=== PATIENT | male | born 1945 | race Caucasian/White ===

== ENCOUNTER 2024-08-30 08:06 | Emergency (ER) | payer MEDICARE, BC ==
[2024-08-30 08:12] VITALS: RESP 17; TEMP 97.6
--- NOTE | 2024-08-30 09:06 | ED ---
General Adult HPI - General Chief complaint: Abdominal Pain Stated complaint: GI issues Time Seen by Provider: 08/30/24 08:15 Source: patient Mode of arrival: ambulatory Limitations: no limitations - History of Present Illness Initial comments: Dictation was produced using [employer] dictation software. please excuse any grammatical, word or spelling errors. Chief Complaint: 78-year-old male with history of nonspecific colitis presents with abdominal pain History of Present Illness: Patient 78-year-old male he is visiting from out of town. Patient states he establish medical care in [place]. States that he comes here to visit during the summer. He reports he having history of colitis that was diagnosed by GI specialist based on colonoscopy results. Patient states he has been having a colitis flare. He called his GI doctor who was supposed calling him in some steroids however he never got them. States his pain is worse than usual and in a slightly different location more than usual. States that he had some diarrhea with a little bit of blood in it. Denies any fever chills or night sweats. The ROS documented in this emergency department record has been reviewed and confirmed by me. Those systems with pertinent positive or negative responses have been documented in the HPI. All other systems are other negative and/or no ncontributory. - Related Data Allergies Allergy/AdvReac Type Severity Reaction Status Date / Time Sulfa (Sulfonamide Allergy Nausea & Verified 08/30/24 08:12 Antibiotics) Vomiting Review of Systems ROS Statement: Those systems with pertinent positive or pertinent negative responses have been documented in the HPI. ROS Other: All systems not noted in ROS Statement are negative. Past Medical History Additional Past Medical History / Comment(s): colitis History of Any Multi-Drug Resistant Organisms: None Reported Past Surgical History: Back Surgery, Orthopedic Surgery, Prostate Surgery Smoking Status: Never smoker Past Alcohol Use History: None Reported Past Drug Use History: None Reported General Exam - General Exam Comments Initial Comments: PHYSICAL EXAM: General Impression: Alert and oriented x3, not in acute distress HEENT: Normocephalic atraumatic, extra-ocular movements intact, pupils equal and reactive to light bilaterally, mucous membranes moist. Cardiovascular: Heart regular rate and rhythm Chest: Able to complete full sentences, no retractions, no tachypnea Abdomen: abdomen soft, slight lower abdominal palpatory tenderness non- distended, no organomegaly Musculoskeletal: Pulses present and equal in all extremities, no peripheral edema Motor: no focal deficits noted Neurological: CN II-XII grossly intact, no focal motor or sensory deficits noted Skin: Intact with no visualized rashes Psych: Normal affect and mood Limitations: no limitations Course Vital Signs 08/30/24 08:07 Temperature 97.6 F Pulse Rate 87 Respiratory 17 Rate Blood Pressure 127/72 O2 Sat by Pulse 98 Oximetry Medical Decision Making - Medical Decision Making Was pt. sent in by a medical professional or institution (, PA, SAMPLE DISTRIBUTOR, urgent care, hospital, or prison...) When possible be specific @ -No Did you speak to anyone other than the patient for history (EMS, parent, family, police, friend...)? What history was obtained from this source @ -No Did you review nursing and triage notes (agree or disagree)? Why? @ -I reviewed and agree with nursing and triage notes Were old charts reviewed (outside hosp., previous admission, EMS record, old EKG, old radiological studies, urgent care reports/EKG's, prison records)? Report findings @ -No old charts were reviewed Differential Diagnosis (chest pain, altered mental status, abdominal pain women, abdominal pain men, vaginal bleeding, musculoskeletal, weakness, fever, dyspnea, syncope, headache, dizziness, GI bleed, back pain, seizure, CVA, palpatations, mental health)? @ -Differential Abdominal Pain Men: Appendicitis, cholecystitis, diverticulosis, ischemic bowel, pancreatitis, hepatitis, UTI, gastroenteritis, AAA, incarcerated hernia, bowel obstruction, constipation, inflammatory bowel, hepatitis, peptic ulcer disease, splenic infarction, perforated viscus, testicular torsion, this is not meant to be an all-inclusive list EKG interpreted by me (3pts min.). @ -None done X-rays interpreted by me (1pt min.). @ -None done CT interpreted by me (1pt min.). @ -CT abdomen pelvis shows colitis U/S interpreted by me (1pt. min.). @ -None done What testing was considered but not performed or refused? (CT, X-rays, U/S, labs)? Why? @ -None What meds were considered but not given or refused? Why? @ -None Was smoking cessation discussed for >3mins.? @ -No Were there social determinants of health that impacted care today? How? (Homelessness, low income, unemployed, alcoholism, drug addiction, t ransportation, low edu. Level, literacy, decrease access to med. care, group home, rehab)? @ -No Was there de-escalation of care discussed even if they declined (Discuss DNR or withdrawal of care, Hospice)? DNR status @ -No What co-morbidities impacted this encounter? (DM, HTN, Smoking, COPD, CAD, Cance r, CVA, ARF, Chemo, Hep., AIDS, mental health diagnosis, sleep apnea, morbid obesity)? @ -Colitis Was patient admitted / discharged? Hospital course, mention meds given and route, prescriptions, significant lab abnormalities, going to OR and other pertinent info. @ -78-year-old male with known inflammatory bowel disease presents to the emergency department for abdominal pain. Vital signs stable. Laboratory evaluation is unremarkable. CT shows colitis. Patient well-appearing at the bedside. While here in the ER he did establish contact with his GI doctor who prescribed steroids for him to take. Patient with dose of Decadron. Patient discharged. At time of discharge patient stable. Return precautions discussed. Did you discuss the management of the patient with other professionals (professionals i.e. , PA, SAMPLE DISTRIBUTOR, lab, RT, psych nurse, elementary school social worker, hand mold maker, teacher, interface control officer, case advocate)? Give summary @ -No Was critical care preformed (if so, how long)? @ -No Undiagnosed new problem with uncertain prognosis? @ -No Drug Therapy requiring intensive monitoring for toxicity (Heparin, Nitro, Insulin, Cardizem)? @ -No Were any procedures done? @ -No Diagnosis/symptom? Acute, or Chronic, or Acute on Chronic? Uncomplicated (without systemic symptoms) or Complicated (systemic symptoms)? @ -Colitis flare Side effects of treatment? @ -No Exacerbation, Progression, or Severe Exacerbation? @ -No Poses a threat to life or bodily function? How? (Chest pain, [place], AL, pneumonia, PE, COPD, DKA, ARF, appy, cholecystitis, CVA, Diverticulitis, Homicidal, Suicidal, threat to staff... and all critical care pts) @ -yes - Lab Data Result diagrams: 08/30/24 08:47 08/30/24 08:47 Lab Results 08/30/24 08/30/24 Range/Units 08:47 08:47 WBC 12.20 H (4.50-10.00) 10*3/uL RBC 3.82 L (4.40-5.60) 10*6/uL Hgb 11.3 L (13.0-17.0) g/dL Hct 34.0 L (39.6-50.0) % MCV 89.0 (80.0-97.0) fL MCH 29.6 (27.0-32.0) pg MCHC 33.2 (32.0-37.0) g/dL Plt Count 363 (140-440) 10*3/uL MPV 9.5 (9.5-12.2) fL Immature Gran % (Auto) 0.8 % Neutrophils % 63.5 % Lymphocytes % 15.5 % Monocytes % 11.6 % Eosinophils % 7.5 % Basophils % 1.1 % Immature Gran # 0.10 H (0.00-0.04) 10*3/uL Neutrophils # 7.75 H (1.80-7.70) 10*3/uL Lymphocytes # 1.89 (0.90-5.00) 10*3/uL Monocytes # 1.42 H (0.20-1.00) 10*3/uL Eosinophils # 0.91 H (0.04-0.35) 10*3/uL Basophils # 0.13 H (0.00-0.10) 10*3/uL Sodium 140 (137-145) mmol/L Potassium 4.0 (3.5-5.1) mmol/L Chloride 105 (98-107) mmol/L Carbon Dioxide 25 (22-30) mmol/L Anion Gap 10 mmol/L BUN 19 (9-20) mg/dL Creatinine 1.04 (0.66-1.25) mg/dL Est GFR (CKD-EPI)AfAm 80 (>60 ml/min/1.73 sqM) Est GFR (CKD-EPI)NonAf 69 (>60 ml/min/1.73 sqM) Glucose 115 H (74-99) mg/dL Calcium 9.8 (8.4-10.2) mg/dL Total Bilirubin 0.5 (0.2-1.3) mg/dL AST 22 (17-59) U/L ALT 18 (4-49) U/L Alkaline Phosphatase 76 (38-126) U/L Total Protein 7.3 (6.3-8.2) g/dL Albumin 3.8 (3.5-5.0) g/dL Lipase 360 H (23-300) U/L Disposition Clinical Impression: Ulcerative colitis Disposition: HOME SELF-CARE Condition: Good Instructions (If sedation given, give patient instructions): Colitis (ED) Is patient prescribed a controlled substance at d/c from ED?: No Referrals: None,Stated [Primary Care Provider] - 1-2 days Time of Disposition: 10:14
[2024-08-30 09:09] LABS: Basophils # (A) 0.13 10*3/uL (0.00-0.10); Basophils % (A) 1.1 %; Eosinophils # (A) 0.91 10*3/uL (0.04-0.35); Eosinophils % (A) 7.5 %; HGB 11.3 g/dL (13.0-17.0); Lymphocytes # (A) 1.89 10*3/uL (0.90-5.00); Lymphocytes % (A) 15.5 %; MCH 29.6 pg (27.0-32.0); MCHC 33.2 g/dL (32.0-37.0); Mean Platelet Volume 9.5 fL (9.5-12.2); Monocytes # (A) 1.42 10*3/uL (0.20-1.00); Monocytes % (A) 11.6 %; Neutrophils # (A) 7.75 10*3/uL (1.80-7.70); Neutrophils % (A) 63.5 %; Platelet Count 363 10*3/uL (140-440); RBC 3.82 10*6/uL (4.40-5.60); RDW 13.2 % (11.5-14.5)
[2024-08-30 09:12] LABS: ALT 18 U/L (4-49); African American GFR (CKD) 80 (>60 ml/min/1.73 sqM); Albumin 3.8 g/dL (3.5-5.0); Anion Gap 10 mmol/L; Blood Urea Nitrogen 19 mg/dL (9-20); Calcium 9.8 mg/dL (8.4-10.2); Carbon Dioxide 25 mmol/L (22-30); Chloride 105 mmol/L (98-107); Glucose 115 mg/dL (74-99); Lipase 360 U/L (23-300); Non-African American GFR(CKD) 69 (>60 ml/min/1.73 sqM); Sodium 140 mmol/L (137-145); Total Bilirubin 0.5 mg/dL (0.2-1.3); Total Protein 7.3 g/dL (6.3-8.2)
[2024-08-30 09:16] LABS: AST 22 U/L (17-59); Alkaline Phosphatase 76 U/L (38-126)
--- NOTE | 2024-08-30 09:51 | CT ---
EXAMINATION TYPE: CT abdomen pelvis w con DATE OF EXAM: 08/30/2024 9:40 AM COMPARISON: None. CLINICAL INDICATION: Male, 78 years old with history of lower abdominal pain, Recently diagnosed with colitis, suspects flare up. TECHNIQUE: Axial images were obtained from above the diaphragm to the pubic rami in the axial plane a t 5 mm thick sections. Reconstructed images are reviewed on the computer in the coronal plane. CONTRAST: 100ml mL of Isovue 300. Study performed without Oral Contrast DLP: 942.1 mGycm, Automated exposure control for dose reduction was used. FINDINGS: Limited CT sections are obtained the lung bases. There is calcification of the posterior lateral lef t lung measures 0.[address] ABDOMEN: Small periumbilical fat-containing hernia is present. No loops of bowel involved. Liver: Normal Spleen: Scattered punctate calcified granuloma within the spleen Pancreas: Normal Adrenal glands: The adrenal glands are normal. Gallbladder: Normal Kidneys: No masses are evident. No hydronephrosis is present. No cysts are present. Delayed images were obtained through the kidneys, which remain unremarkable. Aorta: Vascular calcification is within the aorta. Inferior vena cava: Normal. CT PELVIS: There is diffuse wall thickening from the splenic flexure to the rectum. Correlate for colitis. Consi sherwin ulcerative colitis. There are a few diverticular changes present. No acute diverticulitis. No shirley e air is evident. No abscess formation is identified. This study is without oral contrast limiting ev aluation. Appendix: Normal as visualized. Urinary bladder: Urinary bladder is decompressed limiting evaluation Genitourinary structures: Prostate is normal Osseous structures: No suspicious lytic or sclerotic lesions. IMPRESSION: 1. Colitis from the splenic flexure to the rectum. Consider ulcerative colitis. 2. Small. Umbilical hernia containing mesenteric fat. [facility], , 08/30/2024 9:49 AM
[2024-08-30] MEDS: DEXAMETHASONE SOD PHOSPHATE 10 MG/ML 1 ML VIAL IV STA (10:29)
[2024-08-30 10:48] VITALS: BP 114/73; PULSE 78
== END 2024-08-30 10:48 | disposition home or self-care (01) ==
LOC: EC 08:06
DX: K51.90 Ulcerative colitis, unspecified, without complications (principal); Z88.2 Allergy status to sulfonamides
CPT/HCPCS: 36415; 80053; 83690; 85025; 74177; 99284; 96374; J1100; Q9967

== ENCOUNTER 2024-09-01 07:48 | Inpatient (IN) | payer MEDICARE, BC ==
[2024-09-01 08:37] LABS: Basophils % (A) 0.9 %; Eosinophils # (A) 0.26 10*3/uL (0.04-0.35); Eosinophils % (A) 2.4 %; HCT 31.5 % (39.6-50.0); HGB 10.6 g/dL (13.0-17.0); Lymphocytes # (A) 2.73 10*3/uL (0.90-5.00); Lymphocytes % (A) 25.4 %; MCH 29.7 pg (27.0-32.0); MCHC 33.7 g/dL (32.0-37.0); MCV 88.2 fL (80.0-97.0); Mean Platelet Volume 9.4 fL (9.5-12.2); Monocytes # (A) 1.48 10*3/uL (0.20-1.00); Monocytes % (A) 13.8 %; Neutrophils # (A) 5.96 10*3/uL (1.80-7.70); Neutrophils % (A) 55.6 %; Platelet Count 390 10*3/uL (140-440); RBC 3.57 10*6/uL (4.40-5.60); RDW 13.2 % (11.5-14.5); WBC 10.73 10*3/uL (4.50-10.00)
[2024-09-01 08:48] LABS: INR 0.9 (<1.2); Partial Thromboplastin Time 26.6 sec (22.0-30.0); Prothrombin Time 10.4 sec (10.0-12.5)
[2024-09-01 08:55] LABS: ALT 17 U/L (4-49); AST 19 U/L (17-59); African American GFR (CKD) >90 (>60 ml/min/1.73 sqM); Albumin 3.8 g/dL (3.5-5.0); Alkaline Phosphatase 82 U/L (38-126); Anion Gap 11 mmol/L; Blood Urea Nitrogen 24 mg/dL (9-20); Calcium 9.9 mg/dL (8.4-10.2); Carbon Dioxide 22 mmol/L (22-30); Chloride 108 mmol/L (98-107); Glucose 90 mg/dL (74-99); Non-African American GFR(CKD) 78 (>60 ml/min/1.73 sqM); Sodium 141 mmol/L (137-145); Total Bilirubin 0.4 mg/dL (0.2-1.3); Total Protein 7.1 g/dL (6.3-8.2)
--- NOTE | 2024-09-01 10:05 | CT ---
EXAMINATION TYPE: CT angio abdomen pelvis DATE OF EXAM: 09/01/2024 9:47 AM COMPARISON: None. CLINICAL INDICATION: Male, 78 years old with history of GI bleed protocol, hx of colitis. bright red blood in stool TECHNIQUE: Axial images were obtained from above the diaphragm to the pubic rami in the axial plane a t 5 mm thick sections. Reconstructed images are reviewed on the computer in the coronal plane. CONTRAST: 100 ml mL of Isovue 370. Study performed without Oral Contrast DLP: 1734 mGycm, Automated exposure control for dose reduction was used. FINDINGS: Limited CT sections are obtained the lung bases. The lung bases are clear. CT ABDOMEN: Liver: Normal Spleen: Calcified granulomata within the spleen Pancreas: Normal Adrenal glands: The adrenal glands are normal. Gallbladder: Normal Kidneys: No masses are evident. No hydronephrosis is present. No cysts are present. Punctate calci fications in the posterior mid left kidney. There is a 0.5 cm calcification in the inferior pole rig ht kidney Aorta: Vascular calcification is within the aorta. Inferior vena cava: Normal. CT PELVIS: Some mild wall thickening within the distal descending colon and sigmoid colon may be present. Some m ild inflammatory change adjacent to the descending colon and proximal sigmoid colon may be present. T here are couple of small diverticuli present. Findings can be compatible with colitis or mild diverti culitis. Appendix: Normal as visualized. Urinary bladder: Normal. Genitourinary structures: Prostate appears unremarkable Osseous structures: No suspicious lytic or sclerotic lesions. IMPRESSION: 1. Nonobstructing renal stones. 2. Some mild wall thickening within the distal descending colon with minimal adjacent inflammatory ch anges and sigmoid colon may be present. Mild colitis or mild diverticulitis could be considered. [facility], , 09/01/2024 10:03 AM
[2024-09-01] MEDS: PANTOPRAZOLE 40 MG/10 ML VIAL IVP STA (10:36)
[2024-09-01] MEDS ORDERED: NALOXONE 0.4 MG/ML 1 ML VIAL IV PRN (11:05)
[2024-09-01] MEDS ORDERED: ONDANSETRON 4 MG/2 ML VIAL IVP PRN (11:05)
--- NOTE | 2024-09-01 11:07 | ED ---
General Adult HPI - General Chief complaint: GI Bleed Stated complaint: blood in stool Time Seen by Provider: 09/01/24 07:50 Source: patient, family, RN notes reviewed, old records reviewed Mode of arrival: ambulatory Limitations: no limitations - History of Present Illness Initial comments: Patient is a 78-year-old male who presents emergency department complaining of blood per rectum. Is not on blood thinners. Has a history of colitis. Denies any chest pain or shortness of breath. Endorses left lower quadrant abdominal pain. States he has been having symptoms for a few days but the blood started today. Had 2 episodes. At home. No hematemesis. No chest pain or shortness of breath. Presents for further evaluation at this time. [place] and [place] visiting for the summer. - Related Data Home Medications Medication Instructions Recorded Confirmed Ibuprofen [Motrin Ib] 200 mg PO DAILY 09/01/24 09/01/24 Mesalamine [Mesalamine ER] 0.375 gm PO QID 09/01/24 09/01/24 predniSONE [Deltasone] 20 mg PO PC-BRKFST 09/01/24 09/01/24 Allergies Allergy/AdvReac Type Severity Reaction Status Date / Time Sulfa (Sulfonamide Allergy Nausea & Verified 09/01/24 11:57 Antibiotics) Vomiting Review of Systems ROS Statement: Those systems with pertinent positive or pertinent negative responses have been documented in the HPI. Review of Systems: CONST: Denies fever EYES: Denies blurry vision ENT: Denies nasal congestion C/V: Denies Chest pain RESP: Denies shortness of breath GI: Endorses abdominal pain, rectal bleeding : Denies dysuria SKIN: Denies rash. MSK: Denies joint pain. NEURO: Denies headache ROS Other: All systems not noted in ROS Statement are negative. Past Medical History Past Medical History: Sleep Apnea/CPAP/BIPAP Additional Past Medical History / Comment(s): colitis History of Any Multi-Drug Resistant Organisms: None Reported Past Surgical History: Back Surgery, Orthopedic Surgery, Prostate Surgery Smoking Status: Never smoker Past Alcohol Use History: None Reported Past Drug Use History: None Reported General Exam - General Exam Comments Initial Comments: General: Appears in no acute distress. HEAD: Normal with no signs of head trauma. EYES: PERRLA, EOMI, conjunctiva normal, no discharge. ENT: Hearing grossly intact, normal oropharynx. RESPIRATORY: Clear breath sounds bilaterally. No wheezes, rales, or rhonchi. C/V: Regular rate and rhythm. S1 and S2 auscultated, no edema, peripheral pulses 2+ and intact throughout ABD: Abdomen soft, nondistended. Mildly tender to palpation in the lower quadrants. No guarding or rebound tenderness. No peritoneal signs. On rectal exam, no gross blood per rectum. EXT: Normal range of motion, no obvious deformity SKIN: No rashes or lesions observed on exposed skin. NEURO: Alert and oriented x 4. Limitations: no limitations Course Vital Signs 09/01/24 09/01/24 09/01/24 07:51 10:40 12:07 Temperature 97.8 F 98.5 F Pulse Rate 79 77 68 Respiratory 20 18 16 Rate Blood Pressure 134/71 139/85 122/69 O2 Sat by Pulse 99 98 99 Oximetry Medical Decision Making - Medical Decision Making Was pt. sent in by a medical professional or institution (, PA, HANDBOOK WRITER, urgent care, hospital, or assisted...) When possible be specific @ -No Did you speak to anyone other than the patient for history (EMS, parent, family, police, friend...)? What history was obtained from this source @ -No Did you review nursing and triage notes (agree or disagree)? Why? @ -I reviewed and agree with nursing and triage notes Were old charts reviewed (outside hosp., previous admission, EMS record, old EKG, old radiological studies, urgent care reports/EKG's, assisted records)? Report findings @ -Reviewed hemoglobin from August 30, 2024 when he was last here and it was 11.3. Is currently decreased to 10.6. Differential Diagnosis (chest pain, altered mental status, abdominal pain women, abdominal pain men, vaginal bleeding, weakness, fever, dyspnea, syncope, headache, dizziness, GI bleed, back pain, seizure, CVA, palpatations, mental he alth, musculoskeletal)? @ -Differential GI Bleed: Esophageal varices, aortoenteric fistula, Deloris-Higgins, gastritis, peptic ulcer disease, diverticulosis, inflammatory bowel disease, hemorrhoids, fissure, colitis, malignancy, Meckel's diverticulum, this is not meant to be an all- inclusive list. EKG interpreted by me (3pts min.). @ -As above X-rays interpreted by me (1pt min.). @ -None done CT interpreted by me (1pt min.). @ -CT angiogram reveals diverticulitis versus colitis. No obvious source of GI bleed. U/S interpreted by me (1pt. min.). @ -None done What testing was considered but not performed or refused? (CT, X-rays, U/S, labs)? Why? @ -None What meds were considered but not given or refused? Why? @ -None Did you discuss the management of the patient with other professionals (professionals i.e. , PA, HANDBOOK WRITER, lab, RT, psych nurse, sexual assault social worker, scientific manager, teacher, police officer, hospice case manager)? Give summary @ -Discussed with Dr. Wright who accepted the admission. Was smoking cessation discussed for >3mins.? @ -No Was critical care preformed (if so, how long)? @ -No Were there social determinants of health that impacted care today? How? (Homelessness, low income, unemployed, alcoholism, drug addiction, transportation, low edu. Level, literacy, decrease access to med. care, snf, rehab)? @ -No Was there de-escalation of care discussed even if they declined (Discuss DNR or withdrawal of care, Hospice)? DNR status @ -No What co-morbidities impacted this encounter? (DM, HTN, Smoking, COPD, CAD, Cancer, CVA, ARF, Chemo, Hep., AIDS, mental health diagnosis, sleep apnea, morbid obesity)? @ -Colitis Was patient admitted / discharged? Hospital course, mention meds given and route, prescriptions, significant lab abnormalities, going to OR and other pertinent info. @ -Patient presents with colitis symptoms however acute blood per rectum. No episodes here in the department. Workup started in triage. Labs remarkable for worsening anemia from recently down to 10.6. Remainder the labs unremarkable. BUN is slightly elevated at 24. Occult blood returned negative. CT angiogram revealed no obvious acute bleeding. Does show colitis versus diverticulitis. Vitals are within acceptable limits. I discussed results with patient. This is a second visit for similar complaints he will be admitted. We will treat diverticulitis with IV Flagyl and ciprofloxacin. Consult placed to gastroenterology. He was in agreement this plan. I spoke with the admitting provider, Dr. Wright who accepted the admission. Undiagnosed new problem with uncertain prognosis? @ -No Drug Therapy requiring intensive monitoring for toxicity (Heparin, Nitro, Insulin, Cardizem)? @ -No Were any procedures done? @ -No Diagnosis/symptom? @ -Diverticulitis, lower GI bleed Acute, or Chronic, or Acute on Chronic? @ -Acute Uncomplicated (without systemic symptoms) or Complicated (systemic symptoms)? @ -Complicated Side effects of treatment? @ -No Exacerbation, Progression, or Severe Exacerbation? @ -No Poses a threat to life or bodily function? How? (Chest pain, [place], [place], pneumonia, PE, COPD, DKA, ARF, appy, cholecystitis, CVA, Diverticulitis, Homicidal, Suicidal, threat to staff... and all critical care pts) @ -Unlikely at this time - Lab Data Result diagrams: 09/01/24 08:24 09/01/24 08:24 Lab Results 09/01/24 09/01/24 09/01/24 Range/Units 08:15 08:20 08:24 WBC 10.73 H (4.50-10.00) 10*3/uL RBC 3.57 L (4.40-5.60) 10*6/uL Hgb 10.6 L (13.0-17.0) g/dL Hct 31.5 L (39.6-50.0) % MCV 88.2 (80.0-97.0) fL MCH 29.7 (27.0-32.0) pg MCHC 33.7 (32.0-37.0) g/dL Plt Count 390 (140-440) 10*3/uL MPV 9.4 L (9.5-12.2) fL Immature Gran % (Auto) 1.9 % Neutrophils % 55.6 % Lymphocytes % 25.4 % Monocytes % 13.8 % Eosinophils % 2.4 % Basophils % 0.9 % Immature Gran # 0.20 H (0.00-0.04) 10*3/uL Neutrophils # 5.96 (1.80-7.70) 10*3/uL Lymphocytes # 2.73 (0.90-5.00) 10*3/uL Monocytes # 1.48 H (0.20-1.00) 10*3/uL Eosinophils # 0.26 (0.04-0.35) 10*3/uL Basophils # 0.10 (0.00-0.10) 10*3/uL PT (10.0-12.5) sec INR (<1.2) APTT (22.0-30.0) sec Sodium (137-145) mmol/L Potassium (3.5-5.1) mmol/L Chloride (98-107) mmol/L Carbon Dioxide (22-30) mmol/L Anion Gap mmol/L BUN (9-20) mg/dL Creatinine (0.66-1.25) mg/dL Est GFR (CKD-EPI)AfAm (>60 ml/min/1.73 sqM) Est GFR (CKD-EPI)NonAf (>60 ml/min/1.73 sqM) Glucose (74-99) mg/dL Plasma Lactic Acid Jose Antonio (0.7-2.0) mmol/L Calcium (8.4-10.2) mg/dL Total Bilirubin (0.2-1.3) mg/dL AST (17-59) U/L ALT (4-49) U/L Alkaline Phosphatase (38-126) U/L Troponin I (0.000-0.034) ng/mL C-Reactive Protein (<1.0) mg/dL Total Protein (6.3-8.2) g/dL Albumin (3.5-5.0) g/dL Stool Occult Blood (Negative) Blood Type A Positive Blood Type Confirm A Positive Blood Type Recheck No Previous Record Bld Type Recheck Status CABO Indicated Antibody Screen POSITIVE Antibody Identification Not Reportable Spec Expiration Date 09/04/2024231909/01/24 09/01/24 09/01/24 Range/Units 08:24 08:24 08:24 WBC (4.50-10.00) 10*3/uL RBC (4.40-5.60) 10*6/uL Hgb (13.0-17.0) g/dL Hct (39.6-50.0) % MCV (80.0-97.0) fL MCH (27.0-32.0) pg MCHC (32.0-37.0) g/dL Plt Count (140-440) 10*3/uL MPV (9.5-12.2) fL Immature Gran % (Auto) % Neutrophils % % Lymphocytes % % Monocytes % % Eosinophils % % Basophils % % Immature Gran # (0.00-0.04) 10*3/uL Neutrophils # (1.80-7.70) 10*3/uL Lymphocytes # (0.90-5.00) 10*3/uL Monocytes # (0.20-1.00) 10*3/uL Eosinophils # (0.04-0.35) 10*3/uL Basophils # (0.00-0.10) 10*3/uL PT 10.4 (10.0-12.5) sec INR 0.9 (<1.2) APTT 26.6 (22.0-30.0) sec Sodium 141 (137-145) mmol/L Potassium 4.0 (3.5-5.1) mmol/L Chloride 108 H (98-107) mmol/L Carbon Dioxide 22 (22-30) mmol/L Anion Gap 11 mmol/L BUN 24 H (9-20) mg/dL Creatinine 0.94 (0.66-1.25) mg/dL Est GFR (CKD-EPI)AfAm >90 (>60 ml/min/1.73 sqM) Est GFR (CKD-EPI)NonAf 78 (>60 ml/min/1.73 sqM) Glucose 90 (74-99) mg/dL Plasma Lactic Acid Jose Antonio 1.3 (0.7-2.0) mmol/L Calcium 9.9 (8.4-10.2) mg/dL Total Bilirubin 0.4 (0.2-1.3) mg/dL AST 19 (17-59) U/L ALT 17 (4-49) U/L Alkaline Phosphatase 82 (38-126) U/L Troponin I (0.000-0.034) ng/mL C-Reactive Protein (<1.0) mg/dL Total Protein 7.1 (6.3-8.2) g/dL Albumin 3.8 (3.5-5.0) g/dL Stool Occult Blood (Negative) Blood Type Blood Type Confirm Blood Type Recheck Bld Type Recheck Status Antibody Screen Antibody Identification Spec Expiration Date 09/01/24 09/01/24 09/01/24 Range/Units 08:24 08:24 10:44 WBC (4.50-10.00) 10*3/uL RBC (4.40-5.60) 10*6/uL Hgb (13.0-17.0) g/dL Hct (39.6-50.0) % MCV (80.0-97.0) fL MCH (27.0-32.0) pg MCHC (32.0-37.0) g/dL Plt Count (140-440) 10*3/uL MPV (9.5-12.2) fL Immature Gran % (Auto) % Neutrophils % % Lymphocytes % % Monocytes % % Eosinophils % % Basophils % % Immature Gran # (0.00-0.04) 10*3/uL Neutrophils # (1.80-7.70) 10*3/uL Lymphocytes # (0.90-5.00) 10*3/uL Monocytes # (0.20-1.00) 10*3/uL Eosinophils # (0.04-0.35) 10*3/uL Basophils # (0.00-0.10) 10*3/uL PT (10.0-12.5) sec INR (<1.2) APTT (22.0-30.0) sec Sodium (137-145) mmol/L Potassium (3.5-5.1) mmol/L Chloride (98-107) mmol/L Carbon Dioxide (22-30) mmol/L Anion Gap mmol/L BUN (9-20) mg/dL Creatinine (0.66-1.25) mg/dL Est GFR (CKD-EPI)AfAm (>60 ml/min/1.73 sqM) Est GFR (CKD-EPI)NonAf (>60 ml/min/1.73 sqM) Glucose (74-99) mg/dL Plasma Lactic Acid Jose Antonio (0.7-2.0) mmol/L Calcium (8.4-10.2) mg/dL Total Bilirubin (0.2-1.3) mg/dL AST (17-59) U/L ALT (4-49) U/L Alkaline Phosphatase (38-126) U/L Troponin I <0.012 (0.000-0.034) ng/mL C-Reactive Protein 4.2 H (<1.0) mg/dL Total Protein (6.3-8.2) g/dL Albumin (3.5-5.0) g/dL Stool Occult Blood Negative (Negative) Blood Type Blood Type Confirm Blood Type Recheck Bld Type Recheck Status Antibody Screen Antibody Identification Spec Expiration Date - EKG Data -: EKG Interpreted by Me EKG Comments: 12-lead Electrocardiogram Interpretation Note EKG was reviewed and interpreted by myself. 12-lead ECG performed at 0802 is interpreted by me as revealing normal sinus rhythm at a rate of 70 beats per minute. [place] is normal. [place] interval is 176 ms, QRS duration is 89 ms, QTc is 400 ms.. There were no ST or T wave abnormalities to suggest myocardial ischemia or injury. R wave progression across the precordium was satisfactory. By my interpretation this EKG is non-diagnostic for acute ischemia. Disposition Clinical Impression: GI bleed, Diverticulitis Disposition: ADMITTED IP TO THIS HOSP Condition: Stable Is patient prescribed a controlled substance at d/c from ED?: No Time of Disposition: 11:05
[2024-09-01] MEDS ORDERED: HYDROcodone/APAP 5-325MG 1 EACH TAB PO PRN (12:07)
[2024-09-01] MEDS ORDERED: HYDROmorphone 0.5 MG/0.5 ML SYRINGE IVP PRN (12:07)
[2024-09-01] MEDS: LEVOFLOXACIN 500MG-D5W PMX 500 MG in DEXTROSE/WATER 1 100ML.BAG IVPB SCH (12:08)
[2024-09-01] MEDS: SODIUM CHLORIDE 0.9% 1,000 ML IV STA (12:09)
[2024-09-01] MEDS ORDERED: DEXTROSE 50% SYRINGE 50 ML IVP PRN ×2 (12:09)
[2024-09-01] MEDS ORDERED: ACETAMINOPHEN TAB 500 MG TAB PO PRN (12:10)
[2024-09-01] MEDS ORDERED: methylPREDNISolone SOD SUCCI 125 MG/2 ML VIAL IV SCH (12:15)
[2024-09-01 12:19] LABS: Glucose,Whole Blood 92 mg/dL (70-110)
[2024-09-01] MEDS: INSULIN LISPRO (HumaLOG) 100 UNIT/ML 10 mL VL SQ SCH (12:19)
[2024-09-01] MEDS: SODIUM CHLORIDE 0.9% 1,000 ML IV SCH (12:30)
[2024-09-01] MEDS: methylPREDNISolone SOD SUCCI 125 MG/2 ML VIAL IV SCH (12:30)
[2024-09-01 12:36] LABS: Appearance,Urine Cloudy (Clear); Bilirubin,Urine Negative (Negative); Blood,Urine Small (Negative); Color,Urine Yellow; Glucose,Urine (UA) Negative (Negative); Ketones,Urine Negative (Negative); Leukocyte Esterase,Urine Trace (Negative); Mucus,Urine Rare /hpf; Nitrite,Urine Positive (Negative); PH, Urine 6.5 (5.0-8.0); Protein,Urine Trace (Negative); RBC,Urine 33 /hpf (0-5); Urobilinogen,Urine <2.0 mg/dL (<2.0); WBC,Urine 10 /hpf (0-5)
--- NOTE | 2024-09-01 14:45 | P.CONS ---
History of Present Illness - Reason for Consult Consult date: 09/01/24 GI bleed, diverticulitis Requesting physician: Anatoliy Mcgowan - Chief Complaint Bloody bowel movements - History of Present Illness This a pleasant 78-year-old male who has presented to the emergency department today with concerns for bloody bowel movements. Patient has a history of inflammatory bowel disease diagnosed about 3 years ago from his kinesiologist in [place]. He had been put on mesalamine for some time and then that was discontinued. He had had a flareup and it was restarted but again he responded very quickly and did not continue the medication. Patient resides in [place] through the winter months and is here in [place] until November. States he has been under increased stress finding out that his son is an alcoholic. He has been having diarrhea for the last 1 week which had a little bit of blood but now has had more blood noted and he is up to 6-8 bowel movements a day. States that he had called his kinesiologist she sent him in prednisone 20 mg daily and he was supposed to take it for about 2 weeks. He started it on Friday but again he was concerned because of the bleeding he had today. Denies any real abdominal pain nausea or vomiting. Denies any weight loss. Mild leukocytosis WBC 10.7, hemoglobin 10.6 patient has elevated CRP. Patient had CTA abdomen pelvis with mild wall thickening of the distal descending colon with some inflammatory changes. He was just here on Friday had a CT of the abdomen pelvis at that time as well which had reported colitis from splenic flexure to rectum. Consider ulcerative colitis. Review of Systems REVIEW OF SYSTEMS: CARDIOPULMONARY: No chest pain or shortness of breath. Gastrointestinal: No abdominal pain. No nausea or vomiting. No hematemesis, coffee-ground emesis. Rectal bleeding with loose bowel movements. GENITOURINARY: No dysuria or hematuria. MUSCULOSKELETAL: Reports normal range of motion. SKIN: No rashes. No jaundice. ENDOCRINE: No chills, fevers. No excessive weight gain or loss. No polydipsia or polyuria. PSYCHIATRIC: Unremarkable. NEUROLOGY: No change in mental status. Denies dizziness, headache. ENT: Vision unremarkable. CONSTITUTIONAL: No recent weight loss. No fever, chills, night sweats. Past Medical History Past Medical History: Sleep Apnea/CPAP/BIPAP Additional Past Medical History / Comment(s): colitis History of Any Multi-Drug Resistant Organisms: None Reported Past Surgical History: Back Surgery, Orthopedic Surgery, Prostate Surgery Smoking Status: Never smoker Past Alcohol Use History: None Reported Past Drug Use History: None Reported Medications and Allergies Home Medications Medication Instructions Recorded Confirmed Type Ibuprofen [Motrin Ib] 200 mg PO DAILY 09/01/24 09/01/24 History Mesalamine [Mesalamine ER] 0.375 gm PO QID 09/01/24 09/01/24 History predniSONE [Deltasone] 20 mg PO PC-BRKFST 09/01/24 09/01/24 History Allergies Allergy/AdvReac Type Severity Reaction Status Date / Time Sulfa (Sulfonamide Allergy Nausea & Verified 09/01/24 11:57 Antibiotics) Vomiting Physical Exam Vitals: Vital Signs Temp Pulse Resp BP Pulse Ox 09/01/24 12:07 98.5 F 68 16 122/69 99 09/01/24 10:40 77 18 139/85 98 09/01/24 07:51 97.8 F 79 20 134/71 99 Intake and Output 08/31/24 09/01/24 09/01/24 22:59 06:59 14:59 Other: Weight 81.647 kg General appearance: The patient is alert, oriented, appears in no acute distress. HET: Head is normocephalic and atraumatic. Conjunctiva pink. Sclera anicteric. Neck: Supple without lymphadenopathy. Abdomen: Soft, nontender, nondistended. Extremities: Normal skin color and turgor. No pedal edema Skin: No rashes, no jaundice Neurological: No focal deficits. Alert and oriented. Results CBC & Chem 7: 09/01/24 08:24 09/01/24 08:24 Labs: Abnormal Lab Results - Last 24 Hours (Table) 09/01/24 09/01/24 09/01/24 Range/Units 08:24 08:24 08:24 WBC 10.73 H (4.50-10.00) 10*3/uL RBC 3.57 L (4.40-5.60) 10*6/uL Hgb 10.6 L (13.0-17.0) g/dL Hct 31.5 L (39.6-50.0) % MPV 9.4 L (9.5-12.2) fL Immature Gran # 0.20 H (0.00-0.04) 10*3/uL Monocytes # 1.48 H (0.20-1.00) 10*3/uL Chloride 108 H (98-107) mmol/L BUN 24 H (9-20) mg/dL C-Reactive Protein 4.2 H (<1.0) mg/dL Ur Specific [place] (1.001-1.035) Urine Protein (Negative) Urine Blood (Negative) Ur Leukocyte Esterase (Negative) Urine RBC (0-5) /hpf Urine WBC (0-5) /hpf Urine Mucus (None) /hpf 09/01/24 Range/Units 12:10 WBC (4.50-10.00) 10*3/uL RBC (4.40-5.60) 10*6/uL Hgb (13.0-17.0) g/dL Hct (39.6-50.0) % MPV (9.5-12.2) fL Immature Gran # (0.00-0.04) 10*3/uL Monocytes # (0.20-1.00) 10*3/uL Chloride (98-107) mmol/L BUN (9-20) mg/dL C-Reactive Protein (<1.0) mg/dL Ur Specific [place] 1.040 H (1.001-1.035) Urine Protein Trace H (Negative) Urine Blood Small H (Negative) Ur Leukocyte Esterase Trace H (Negative) Urine RBC 33 H (0-5) /hpf Urine WBC 10 H (0-5) /hpf Urine Mucus Rare H (None) /hpf Comments: CT angiogram abdomen pelvis reports nonobstructing renal stones. Some mild wall thickening within the distal descending colon with minimal adjacent i nflammatory changes in sigmoid colon may be present. Mild colitis or mild diverticulitis could be considered. Assessment and Plan (1) Inflammatory bowel disease Narrative/Plan: 78-year-old with multiple loose stools with blood starting about a week ago with known history of inflammatory bowel disease treated with mesalamine in the past. Patient follows with a kinesiologist out of [place] has not recently been on any mesalamine. But states about 3 years ago he was diagnosed with "colitis" no need for colonoscopy as patient has known diagnosis of inflammatory bowel disease. He has mesalamine 0.375 mg at home which we asked h im to bring in to start taking. Will treat with IV steroids, Solu-Medrol 20 mg every 8 hours ordered. Current Visit: Yes Status: Acute Code(s): K52.9 - NONINFECTIVE GASTROENTERITIS AND COLITIS, UNSPECIFIED SNOMED Code(s): 31970400 (2) Diarrhea Current Visit: Yes Status: Acute Code(s): R19.7 - DIARRHEA, UNSPECIFIED SNOMED Code(s): 97692549 (3) Blood per rectum Current Visit: Yes Status: Acute Code(s): K62.5 - HEMORRHAGE OF ANUS AND RECTUM SNOMED Code(s): 88871035 Plan: 1. Continue symptomatic supportive care 2. Clear liquid diet 3. Solu-Medrol 20 mg IV every 8 hours 4. Patient asked to bring in his mesalamine 0.375 mg tablets from home, take 4 tabs daily 5. No plans on colonoscopy. Patient had colonoscopy 3 years ago with known inflammatory bowel disease. Likely patient is having a flareup. Will treat with medical management. 6. CBC daily, transfuse for hemoglobin less than 7 Thank you for this consultation, we will continue to follow. Dr. Julianna Perez I agree with the dictator's note, documented as a scribe by Janene Guerrero.
[2024-09-01] MEDS: methylPREDNISolone SOD SUCCI 40 MG/ML 1 ML VIAL IV SCH (16:30)
[2024-09-01] MEDS: metroNIDAZOLE-NS PMX 500 MG in SALINE 1 100ML.BAG IVPB SCH (16:31)
[2024-09-01 17:46] LABS: Glucose,Whole Blood 129 mg/dL (70-110)
[2024-09-01 20:25] LABS: Glucose,Whole Blood 184 mg/dL (70-110)
[2024-09-02 07:16] LABS: Glucose,Whole Blood 103 mg/dL (70-110)
[2024-09-02] MEDS: PANTOPRAZOLE 40 MG/10 ML VIAL IV SCH (07:36)
--- NOTE | 2024-09-02 08:41 | HP ---
HISTORY AND PHYSICAL CHIEF COMPLAINT: GI bleed. HISTORY OF PRESENT ILLNESS: This 78-year-old gentleman with a past medical history of colitis of undetermined significance with a colonoscopy done in [facility], was having abdominal pain and GI issues with GI bleed. The patient came back to the ER for the 2nd time and the patient was admitted for further evaluation treatment. Abdominal and pelvis CAT scan done 2 days ago showed colitis from the splenic flexure to the rectum and a CTA showed some wall thickening from the distal descending colon and adjacent inflammatory changes. There is no history of fever, rigors or chills at this time. PAST MEDICAL HISTORY: History of colitis, sleep apnea. Rest of history in the chart is also reviewed. HOME MEDICATIONS: Reviewed include mesalamine and prednisone. ALLERGIES: Sulfa. FAMILY HISTORY: No history of heart disease or strokes. SOCIAL HISTORY: No history of smoking or alcohol. REVIEW OF SYSTEMS: A 14-point review of systems negative except as mentioned earlier. PHYSICAL EXAMINATION: VITAL SIGNS: Pulse 77, blood pressure 113/85, respirations 18. HEENT: Conjunctivae normal. NECK: No jugular venous distention. CARDIOVASCULAR: S1, S2. ABDOMEN: Soft, mild diffuse discomfort, nontender, no masses. LEGS: No edema. NERVOUS SYSTEM: No focal deficits. SKIN: No rash. JOINTS: No active deformity. LABORATORY DATA: Current labs are reviewed. WBC 10.7. ASSESSMENT: 1. Lower GI bleeding with possible acute colitis, possible ulcerative colitis of the descending colon. 2. Anemia. 3. Increased WBC. 4. History of sleep apnea. 5. History of back surgery DJD. RECOMMENDATION: This 78-year-old gentleman presented with multiple complex medical issues. We will monitor the patient closely. I would recommend intravenous steroids. Gastroenterology consultation, empiric antibiotics initiated for bowel thickening. Guarded prognosis because of multiple complex medical issues. Possible colonoscopy. Further recommendations to follow. MMODL / IJN: [id number] /
[2024-09-02] MEDS ORDERED: MESALAMINE 0.375 GM PO SCH (10:00)
[2024-09-02 10:16] LABS: Basophils # (A) 0.06 X 10*3/uL (0.00-0.10); Basophils % (A) 0.6 %; Eosinophils # (A) 0 X 10*3/uL (0.04-0.35); Eosinophils % (A) 0 %; HCT 30.9 % (39.6-50.0); HGB 9.9 g/dL (13.0-17.0); Lymphocytes # (A) 1.48 X 10*3/uL (0.90-5.00); Lymphocytes % (A) 15.4 %; MCH 29.2 pg (27.0-32.0); MCV 91.2 FL (80.0-97.0); Monocytes # (A) 0.56 X 10*3/uL (0.20-1.00); Monocytes % (A) 5.8 %; NRBC Per 100 WBC 0 X 10*3/uL (0.00-0.01); Neutrophils # (A) 7.31 X 10*3/uL (1.80-7.70); Neutrophils % (A) 76.3 %; Platelet Count 362 X 10*3/uL (140-440); RBC 3.39 X 10*6/uL (4.40-5.60); RDW 13.2 % (11.5-14.5); WBC 9.59 X 10*3/uL (4.50-10.00)
[2024-09-02 10:30] LABS: ALT 15 U/L (10-49); AST 11 U/L (14-35); Albumin 3.5 g/dL (3.8-4.9); Albumin/Globulin Ratio 1.09 Ratio (1.60-3.17); Alkaline Phosphatase 80 U/L (41-126); Blood Urea Nitrogen 17.5 mg/dL (9.0-27.0); Calcium 8.9 mg/dL (8.7-10.3); Carbon Dioxide 22.9 mmol/L (21.6-31.8); Chloride 104 mmol/L (96-109); Globulin 3.2 g/dL (1.6-3.3); Glucose 117 mg/dL (70-110); Potassium 4.6 mmol/L (3.5-5.5); Sodium 137 mmol/L (135-145); Total Bilirubin 0.2 mg/dL (0.3-1.2); Total Protein 6.7 g/dL (6.2-8.2)
[2024-09-02] MEDS: MESALAMINE 0.375 GM PO SCH (10:42)
[2024-09-02 12:25] LABS: Glucose,Whole Blood 112 mg/dL (70-110)
--- NOTE | 2024-09-02 16:50 | P.PN ---
Subjective Progress Note Date: 09/02/24 Principal diagnosis: Diarrhea, IBD This a pleasant 78-year-old male who has presented to the emergency department today with concerns for bloody bowel movements. Patient has a history of inflammatory bowel disease diagnosed about 3 years ago from his certified anesthesiologist assistant in [place]. He had been put on mesalamine for some time and then that was discontinued. He had had a flareup and it was restarted but again he responded very quickly and did not continue the medication. Patient resides in [place] through the winter months and is here in [place] until November. States he has been under increased stress finding out that his son is an alcoholic. He has been having diarrhea for the last 1 week which had a little bit of blood but now has had more blood noted and he is up to 6-8 bowel movements a day. States that he had called his certified anesthesiologist assistant she sent him in prednisone 20 mg daily and he was supposed to take it for about 2 weeks. He started it on Friday but again he was concerned because of the bleeding he had today. Denies any real abdominal pain nausea or vomiting. Denies any weight loss. Mild leukocytosis WBC 10.7, hemoglobin 10.6 patient has elevated CRP. Patient had CTA abdomen pelvis with mild wall thickening of the distal luna cending colon with some inflammatory changes. He was just here on Friday had a CT of the abdomen pelvis at that time as well which had reported colitis from splenic flexure to rectum. Consider ulcerative colitis. 09/02/2024 Patient seen and examined today as a follow-up. He states he is doing better. Had about 6-7 bowel movements that are loose but not bloody. Some lower abdominal cramping prior to his bowel movements. Denies any fevers or chills, no nausea or vomiting. Tolerating clear liquid diet. Advance to full liquids and tolerated well. Patient's brought in mesalamine and it was given to the pharmacy for patient to take during this hospitalization. Objective - Vital Signs Vital signs: Vital Signs Temp 97.7 F 09/01/24 23:50 Pulse 68 09/02/24 07:41 Resp 16 09/02/24 07:41 BP 124/73 09/02/24 07:41 Pulse Ox 98 09/02/24 07:41 FiO2 Intake & Output 09/01/24 09/02/24 09/02/24 18:59 06:59 18:59 Weight 81.647 kg - Exam General appearance: The patient is alert, oriented, appears in no acute distress. HET: Head is normocephalic and atraumatic. Conjunctiva pink. Sclera anicteric. Neck: Supple without lymphadenopathy. Abdomen: Soft, nontender, nondistended. Extremities: Normal skin color and turgor. No pedal edema Skin: No rashes, no jaundice Neurological: No focal deficits. Alert and oriented. - Labs CBC & Chem 7: 09/02/24 05:23 09/02/24 05:23 Labs: Abnormal Lab Results - Last 24 Hours (Table) 09/01/24 09/01/24 09/01/24 Range/Units 08:24 08:24 11:45 ESR 58 H (0-20) mm/Hr POC Glucose (mg/dL) (70-110) mg/dL C-Reactive Protein 4.2 H (<1.0) mg/dL Ur Specific Brethren (1.001-1.035) Urine Protein (Negative) Urine Blood (Negative) Ur Leukocyte Esterase (Negative) Urine RBC (0-5) /hpf Urine WBC (0-5) /hpf Urine Mucus (None) /hpf Blood Bank Comment Sent to [facility] A 09/01/24 09/01/24 09/01/24 Range/Units 12:10 17:45 20:23 ESR (0-20) mm/Hr POC Glucose (mg/dL) 129 H 184 H (70-110) mg/dL C-Reactive Protein (<1.0) mg/dL Ur Specific Brethren 1.040 H (1.001-1.035) Urine Protein Trace H (Negative) Urine Blood Small H (Negative) Ur Leukocyte Esterase Trace H (Negative) Urine RBC 33 H (0-5) /hpf Urine WBC 10 H (0-5) /hpf Urine Mucus Rare H (None) /hpf Blood Bank Comment Assessment and Plan (1) Inflammatory bowel disease Narrative/Plan: 78-year-old with multiple loose stools with blood starting about a week ago with known history of inflammatory bowel disease treated with mesalamine in the past. Patient follows with a certified anesthesiologist assistant out of [place] has not recently been on any mesalamine. But states about 3 years ago he was diagnosed with "colitis" no need for colonoscopy as patient has known diagnosis of inflammatory bowel disease. He has mesalamine 0.375 mg at home which we asked him to bring in to start taking. Will treat with IV steroids, Solu-Medrol 20 mg every 8 hours ordered. Current Visit: Yes Status: Acute Code(s): K52.9 - NONINFECTIVE GASTROENTERITIS AND COLITIS, UNSPECIFIED SNOMED Code(s): 78930370 (2) Diarrhea Current Visit: Yes Status: Acute Code(s): R19.7 - DIARRHEA, UNSPECIFIED SNOMED Code(s): 45066041 (3) Blood per rectum Narrative/Plan: Resolved Current Visit: Yes Status: Acute Code(s): K62.5 - HEMORRHAGE OF ANUS AND RECTUM SNOMED Code(s): 35013379 Plan: 1. Continue symptomatic supportive care 2. May increase diet to low-fat low fiber diet 3. Solu-Medrol 20 mg IV every 8 hours, continue IV Solu-Medrol until tomorrow then if patient continues to do better will transition to oral prednisone and discharge 4. Patient asked to bring in his mesalamine 0.375 mg tablets from home, take 4 tabs daily 5. No plans on colonoscopy. Patient had colonoscopy 3 years ago with known inflammatory bowel disease. Likely patient is having a flareup. Will treat with medical management. Thank you for this consultation, we will continue to follow. Dr. Julianna Perez I agree with the dictator's note, documented as a scribe by Janene Guerrero.
[2024-09-02 17:22] LABS: Glucose,Whole Blood 127 mg/dL (70-110)
[2024-09-02 20:11] LABS: Glucose,Whole Blood 173 mg/dL (70-110)
--- NOTE | 2024-09-02 20:42 | PN ---
PROGRESS NOTE DATE OF SERVICE: 09/02/2024 SUBJECTIVE: This 78-year-old gentleman admitted with lower GI bleed due to possible acute colitis, is being closely monitored at this time. Dr. Perez is deferring endoscopy currently and advancing the diet. The patient is on empiric antibiotics. No chest pain. No palpitation. PHYSICAL EXAMINATION: VITAL SIGNS: Pulse 68, blood pressure 130/68, and respirations 16. CHEST: Clear to auscultation. CARDIOVASCULAR: S1 and S2. ABDOMEN: Soft, nontender. No mass palpable. LABORATORY DATA: Reviewed. ASSESSMENT: 1. Lower GI bleed with possible acute colitis, possible ulcerative colitis of the descending colon. 2. Anemia. 3. Increased WBC. 4. History of sleep apnea. 5. History of back surgery, DJD. RECOMMENDATIONS: Recommend to continue current medications, symptomatic treatment otherwise. Currently, the hemoglobin is stable. Continue with empiric antibiotics. The patient is on Levaquin and Flagyl. We will closely follow with Gastroenterology, possible endoscopies as an outpatient. Further recommendations to follow. We will repeat labs in the morning. MMODL / IJN: [id number] /
[2024-09-03 02:01] VITALS: PULSE 64
[2024-09-03 05:55] LABS: Glucose,Whole Blood 107 mg/dL (70-110)
[2024-09-03 07:40] VITALS: BP 145/74; RESP 16; TEMP 97.6
[2024-09-03 08:16] LABS: BUN/Creat Ratio 18.22 Ratio (12.00-20.00); Blood Urea Nitrogen 16.4 mg/dL (9.0-27.0); Calcium 8.9 mg/dL (8.7-10.3); Chloride 108 mmol/L (96-109); Glucose 111 mg/dL (70-110); Potassium 4.4 mmol/L (3.5-5.5); Sodium 138 mmol/L (135-145)
[2024-09-03 08:29] LABS: Basophils # (A) 0.11 X 10*3/uL (0.00-0.10); Basophils % (A) 0.9 %; Eosinophils # (A) 0 X 10*3/uL (0.04-0.35); Eosinophils % (A) 0 %; HCT 29.5 % (39.6-50.0); HGB 9.4 g/dL (13.0-17.0); Lymphocytes # (A) 1.66 X 10*3/uL (0.90-5.00); Lymphocytes % (A) 12.9 %; MCH 28.5 pg (27.0-32.0); MCHC 31.9 g/dL (32.0-37.0); MCV 89.4 FL (80.0-97.0); Mean Platelet Volume 10.2 FL (9.5-12.2); Monocytes # (A) 0.86 X 10*3/uL (0.20-1.00); Monocytes % (A) 6.7 %; NRBC Per 100 WBC 0 X 10*3/uL (0.00-0.01); Neutrophils % (A) 75.8 %; Platelet Count 369 X 10*3/uL (140-440); RDW 13.2 % (11.5-14.5); WBC 12.91 X 10*3/uL (4.50-10.00)
--- NOTE | 2024-09-03 08:56 | P.PN ---
Subjective Progress Note Date: 09/03/24 Principal diagnosis: Diarrhea, IBD This a pleasant 78-year-old male who has presented to the emergency department today with concerns for bloody bowel movements. Patient has a history of inflammatory bowel disease diagnosed about 3 years ago from his generation mechanic helper in [place]. He had been put on mesalamine for some time and then that was discontinued. He had had a flareup and it was restarted but again he responded very quickly and did not continue the medication. Patient resides in [place] through the winter months and is here in [place] until November. States he has been under increased stress finding out that his son is an alcoholic. He has been having diarrhea for the last 1 week which had a little bit of blood but now has had more blood noted and he is up to 6-8 bowel movements a day. States that he had called his generation mechanic helper she sent him in prednisone 20 mg daily and he was supposed to take it for about 2 weeks. He started it on Friday but again he was concerned because of the bleeding he had today. Denies any real abdominal pain nausea or vomiting. Denies any weight loss. Mild leukocytosis WBC 10.7, hemoglobin 10.6 patient has elevated CRP. Patient had CTA abdomen pelvis with mild wall thickening of the distal luna cending colon with some inflammatory changes. He was just here on Friday had a CT of the abdomen pelvis at that time as well which had reported colitis from splenic flexure to rectum. Consider ulcerative colitis. 09/02/2024 Patient seen and examined today as a follow-up. He states he is doing better. Had about 6-7 bowel movements that are loose but not bloody. Some lower abdominal cramping prior to his bowel movements. Denies any fevers or chills, no nausea or vomiting. Tolerating clear liquid diet. Advance to full liquids and tolerated well. Patient's brought in mesalamine and it was given to the pharmacy for patient to take during this hospitalization. 09/03/2024 Patient seen and examined today as a follow-up. Stool sample was sent for C. difficile which came back positive. He was started on vancomycin 125 mg 4 times daily. Patient denies any recent antibiotic use other than when he came in here. States diarrhea has improved, no blood in his stool. Denies any abdom inal pain. He has been afebrile. No nausea or vomiting. Objective - Vital Signs Vital signs: Vital Signs Temp 97.6 F 09/03/24 07:30 Pulse 64 09/03/24 07:30 Resp 16 09/03/24 07:30 BP 145/74 09/03/24 07:30 Pulse Ox 100 09/03/24 07:30 FiO2 Intake & Output 09/02/24 09/03/24 09/03/24 18:59 06:59 18:59 Weight 81.647 kg Other: Voiding Method Toilet # Voids 1 # Bowel Movements 1 - Exam General appearance: The patient is alert, oriented, appears in no acute distress. HET: Head is normocephalic and atraumatic. Conjunctiva pink. Sclera anicteric. Neck: Supple without lymphadenopathy. Abdomen: Soft, nontender, nondistended. Extremities: Normal skin color and turgor. No pedal edema Skin: No rashes, no jaundice Neurological: No focal deficits. Alert and oriented. - Labs CBC & Chem 7: 09/03/24 05:12 09/03/24 05:12 Labs: Abnormal Lab Results - Last 24 Hours (Table) 09/01/24 09/02/24 09/02/24 Range/Units 11:45 05:23 05:23 WBC (4.50-10.00) X 10*3/uL RBC 3.39 L (4.40-5.60) X 10*6/uL Hgb 9.9 L (13.0-17.0) g/dL Hct 30.9 L (39.6-50.0) % MCHC (32.0-37.0) g/dL Immature Gran # 0.18 H (0.00-0.04) X 10*3/uL Neutrophils # (1.80-7.70) X 10*3/uL Eosinophils # 0 L (0.04-0.35) X 10*3/uL Basophils # (0.00-0.10) X 10*3/uL Carbon Dioxide (21.6-31.8) mmol/L Glucose (70-110) mg/dL POC Glucose (mg/dL) (70-110) mg/dL Hemoglobin A1c 6.2 H (<=6.0) % Total Bilirubin (0.3-1.2) mg/dL AST (14-35) U/L Albumin (3.8-4.9) g/dL Albumin/Globulin Ratio (1.60-3.17) Ratio C. difficile (EIA) Intrp (Negative) Reference Lab Result See [facility] REF Reports A 09/02/24 09/02/24 09/02/24 Range/Units 05:23 12:22 17:20 WBC (4.50-10.00) X 10*3/uL RBC (4.40-5.60) X 10*6/uL Hgb (13.0-17.0) g/dL Hct (39.6-50.0) % MCHC (32.0-37.0) g/dL Immature Gran # (0.00-0.04) X 10*3/uL Neutrophils # (1.80-7.70) X 10*3/uL Eosinophils # (0.04-0.35) X 10*3/uL Basophils # (0.00-0.10) X 10*3/uL Carbon Dioxide (21.6-31.8) mmol/L Glucose 117 H (70-110) mg/dL POC Glucose (mg/dL) 112 H 127 H (70-110) mg/dL Hemoglobin A1c (<=6.0) % Total Bilirubin 0.2 L (0.3-1.2) mg/dL AST 11 L (14-35) U/L Albumin 3.5 L (3.8-4.9) g/dL Albumin/Globulin Ratio 1.09 L (1.60-3.17) Ratio C. difficile (EIA) Intrp (Negative) Reference Lab Result 09/02/24 09/02/24 09/03/24 Range/Units 20:10 21:55 05:12 WBC 12.91 H (4.50-10.00) X 10*3/uL RBC 3.30 L (4.40-5.60) X 10*6/uL Hgb 9.4 L (13.0-17.0) g/dL Hct 29.5 L (39.6-50.0) % MCHC 31.9 L (32.0-37.0) g/dL Immature Gran # 0.48 H (0.00-0.04) X 10*3/uL Neutrophils # 9.80 H (1.80-7.70) X 10*3/uL Eosinophils # 0 L (0.04-0.35) X 10*3/uL Basophils # 0.11 H (0.00-0.10) X 10*3/uL Carbon Dioxide (21.6-31.8) mmol/L Glucose (70-110) mg/dL POC Glucose (mg/dL) 173 H (70-110) mg/dL Hemoglobin A1c (<=6.0) % Total Bilirubin (0.3-1.2) mg/dL AST (14-35) U/L Albumin (3.8-4.9) g/dL Albumin/Globulin Ratio (1.60-3.17) Ratio C. difficile (EIA) Intrp Positive A (Negative) Reference Lab Result 09/03/24 Range/Units 05:12 WBC (4.50-10.00) X 10*3/uL RBC (4.40-5.60) X 10*6/uL Hgb (13.0-17.0) g/dL Hct (39.6-50.0) % MCHC (32.0-37.0) g/dL Immature Gran # (0.00-0.04) X 10*3/uL Neutrophils # (1.80-7.70) X 10*3/uL Eosinophils # (0.04-0.35) X 10*3/uL Basophils # (0.00-0.10) X 10*3/uL Carbon Dioxide 21.0 L (21.6-31.8) mmol/L Glucose 111 H (70-110) mg/dL POC Glucose (mg/dL) (70-110) mg/dL Hemoglobin A1c (<=6.0) % Total Bilirubin (0.3-1.2) mg/dL AST (14-35) U/L Albumin (3.8-4.9) g/dL Albumin/Globulin Ratio (1.60-3.17) Ratio C. difficile (EIA) Intrp (Negative) Reference Lab Result Assessment and Plan (1) Inflammatory bowel disease Narrative/Plan: 78-year-old with multiple loose stools with blood starting about a week ago with known history of inflammatory bowel disease treated with mesalamine in the past. Patient follows with a generation mechanic helper out of [place] has not recently been on any mesalamine. But states about 3 years ago he was diagnosed with "colitis" no need for colonoscopy as patient has known diagnosis of inflammatory bowel disease. He has mesalamine 0.375 mg at home which we asked him to bring in to start taking. Will treat with IV steroids, Solu-Medrol 20 mg every 8 hours ordered. Current Visit: Yes Status: Acute Code(s): K52.9 - NONINFECTIVE GASTROENTERITIS AND COLITIS, UNSPECIFIED SNOMED Code(s): 02900284 (2) Diarrhea Current Visit: Yes Status: Acute Code(s): R19.7 - DIARRHEA, UNSPECIFIED SNOMED Code(s): 09824404 (3) Blood per rectum Current Visit: Yes Status: Acute Code(s): K62.5 - HEMORRHAGE OF ANUS AND RECTUM SNOMED Code(s): 50923275 (4) C. difficile colitis Narrative/Plan: [place] sample positive for C. difficile colitis. Started on vancomycin 125 mg p.o. 4 times daily. Continue for 10 days. Current Visit: Yes Status: Acute Code(s): A04.72 - ENTEROCOLITIS D/T CLOSTRIDIUM DIFFICILE, NOT SPCF RECUR SNOMED Code(s): 989255101 Plan: 1. Continue symptomatic supportive care 2. May increase diet to low-fat low fiber diet 3. Patient can transition to prednisone 40 mg p.o. daily, taper dose ordered and sent to pharmacy. Discussed with patient on taper dose. 4. Continue mesalamine 5. No plans on colonoscopy. 6. C. difficile positive, continue vancomycin 125 mg 4 times daily for 10 days. Thank you for this consultation. Patient is cleared for discharge from gastroenterology. Recommend outpatient follow-up in [address] Julianna Perez I agree with the dictator's note, documented as a scribe by Janene Guerrero.
[2024-09-03] MEDS: VANCOMYCIN 125 MG CAPSULE PO SCH (09:10)
--- NOTE | 2024-09-03 21:39 | P.DS ---
Providers Date of admission: 09/01/24 11:06 Attending physician: Fermin Wright Consults: 09/01/24 11:05 Consult Physician Routine Consulting Provider: Mercy Perez Consult Reason/Comments: gi bleed, diverticulitis Do you want consulting provider notified?: Yes 09/03/24 02:17 Consult Physician Routine Consulting Provider: Jong Castellanos Consult Reason/Comments: c-diff positive Do you want consulting provider notified?: Yes, Notify in am Primary care physician: Stated None Hospital Course: Diagnoses: Acute C. difficile colitis, mild Lower GI bleed, stable Diverticulitis Inflammatory bowel disease Hospital course: This is a pleasant 78 years old female with past medical history of multiple medical problems as below. Presents because of suspected lower GI bleed and diverticulitis but she unde rwent CT of the abdomen pelvis showing mild colonic wall thickening of the descending colon with minimal adjacent inflammatory changes suspicious for mild colitis. Patient was started on IV antibiotic Levaquin and Flagyl, C. difficile came back positive and patient antibiotics were updated to oral vancomycin. Today before I went to see the patient for the first time I was contacted by GI team Dr. Watters who kindly already saw and evaluate the patient this morning and told me the patient is willing to go home today and then they cleared him for discharge and they sent prescription for his taper prednisone and oral vancomycin to the pharmacy. When I saw the patient he was sitting in chair looks comfortable asking to be discharged. He does not want to wait in the hospital stating he does not have any abdominal pain or tenderness and that he tolerates diet well despite his diarrhea. Denies any bloody diarrhea which is mild to moderate. And that patient is hemodynamically stable. She has mild leukocytosis at 12.9 while she is on steroids. Hemoglobin stable at 9.4 Basic metabolic panel is unremarkable. Glucose controlled Patient denies any other new complaint Patient was cleared for discharge by GI team as above Problems and management plan were discussed with the patient and he verbalized understanding and acceptance Patient was found stable and can be discharged home in guarded prognosis however he needs follow-up as an outpatient. Patient was instructed to follow up with PCP within one week and patient agrees Patient was instructed to follow-up with GI Dr. Porter in 1 week. Also he was referred to ID service Dr. Carrasco in 1 week and he agrees Physical exam Gen: patient is a AAOx3, no distress CVS: S1-S2, RRR, no murmur Lungs: B/L CTA, no wheezing Abdomen: soft, no distention, no tenderness, positive bowel sounds Extremity: no leg edema or induration Time spent more than 35 minutes Patient Condition at Discharge: Stable Plan - Discharge Summary Discharge Rx Participant: No New Discharge Prescriptions: New Vancomycin HCl [Vancocin HCl] 125 mg PO QID 10 Days #40 cap Pantoprazole [Protonix] 40 mg PO DAILY 30 Days #30 tab Continue Ibuprofen [Motrin Ib] 200 mg PO DAILY predniSONE [Deltasone] 20 mg PO PC-BRKFST #32 tab Mesalamine [Mesalamine ER] 0.375 gm PO QID #120 cap Discharge Medication List Ibuprofen [Motrin Ib] 200 mg PO DAILY 09/01/24 [History] Mesalamine [Mesalamine ER] 0.375 gm PO QID #120 cap 09/03/24 [Rx] Pantoprazole [Protonix] 40 mg PO DAILY 30 Days #30 tab 09/03/24 [Rx] Vancomycin HCl [Vancocin HCl] 125 mg PO QID 10 Days #40 cap 09/03/24 [Rx] predniSONE [Deltasone] 20 mg PO PC-BRKFST #32 tab 09/03/24 [Rx] Follow up Appointment(s)/Referral(s): Mercy Perez MD [STAFF PHYSICIAN] - 1 Week None,Stated [Primary Care Provider] - 1-2 days Jong Castellanos MD [STAFF PHYSICIAN] - 09/13/24 3:15 pm Patient Instructions/Handouts: C. Diff (Clostridioides Difficile) Infection (DC) Activity/Diet/Wound Care/Special Instructions: heart healthy diet activity is restricted till you see your doctor Please call your health insurance provider to find a nearby PCP, please call to make an appointment in 1 week Discharge Disposition: HOME SELF-CARE
--- NOTE | 2024-09-06 16:55 | CDI ---
Documentation Clarification Form Date: 09/06/24 From: CANDACE Stearns Admit Date: 09/01/2024 11:06:00 AM Patient Name: Julio Corey Visit Number: [id number] Discharge Date: 09/03/2024 11:40:00 AM ATTENTION: The Clinical Documentation Specialists (CDI) and [facility] Coding Staff appreciate your assistance in clarifying documentation. Please respond to the clarification below the line at the bottom and electronically sign. The CDI & [facility] Coding staff will review the response and follow-up if needed. Please note: Queries are made part of the Legal Health Record. If you have any questions, please contact the author of this message via ITS. Doctor/Provider: Issa E Sheet Unspecified anemia is documented on the ED note, H&P and Progress Note 6.12 . Additional specificity regarding the type and acuity of anemia is requested. History/Risk Factors: Patient is admitted with a chief complaint of GI hemorrhage. He is noted to have a past medical history of colitis and is treated with prednisone. Clinical indicators: Occult stool is negative, diverticulitis is treated with flagyl and C. Difficle came back positive. Hemoglobin: 09/01 10.6, 09/02 9.9, 09/03 9.4 Hematocrit: 09/01 31.5, 09/02 30.9, 09/03 29.5 Please clarify the type and acuity of anemia: [ ] Acute blood loss anemia [ ] Acute on chronic blood loss anemia [ ] Chronic blood loss anemia [ ] Iron deficiency anemia [ x] Unable to determine [ ] Other, please specify MTDD
== END 2024-09-03 11:40 | disposition home or self-care (01) | DRG 371 ==
LOC: EC 07:48 → UNDOADMOB 11:05 → 6NMEDSUR 11:05 → INTOOBSV 11:06 → OBSVTOIN 11:06 → 6NMEDSUR 18:58 → 3SCARD 22:12 → 6NMEDSUR 09-02 05:07 → 3SCARD 09-02 05:07 → 6NMEDSUR 09-02 14:53 → UNDODISOB 09-03 11:40
PROVIDERS: ADMIT Hospitalist; ATTEND Hospitalist
DX: A04.72 Enterocolitis due to Clostridium difficile, not specified as recurrent (principal); K57.33 Diverticulitis of large intestine without perforation or abscess with bleeding; D64.9 Anemia, unspecified; K58.9 Irritable bowel syndrome, unspecified; Z79.52 Long term (current) use of systemic steroids; Z79.899 Other long term (current) drug therapy; Z88.2 Allergy status to sulfonamides; Z79.1 Long term (current) use of non-steroidal anti-inflammatories (NSAID); Z28.310 Unvaccinated for COVID-19
CPT/HCPCS: 36415; 74174; 80048; 80053; 81001; 82272; 83036; 83605; 84484; 85025; 85610; 85652; 85730; 86140; 86850; 86870; 86900; 86901; 87045; 87046; 87324; 93005; 96361; 96365; 96366; 96367; 96375; 96376; 99285